=== PATIENT | female | born 1975 | race Caucasian/White ===

== ENCOUNTER 2019-11-17 21:46 | Emergency (ER) | payer OTHER ==
[~2019-11-17] VITALS: Ht 167.6 cm; Wt 75.3 kg
[2019-11-17 21:49] VITALS: Ht 167.6 cm; Wt 75.3 kg
[2019-11-17 23:52] VITALS: BP 115/61
== END 2019-11-17 23:45 | disposition home or self-care (01) ==
LOC: ED 21:46
DX: T78.1XXA Other adverse food reactions, not elsewhere classified, initial encounter (principal); X58.XXXA Exposure to other specified factors, initial encounter
CPT/HCPCS: J0171; J1100; J1200; J7030; J7613

== ENCOUNTER 2019-11-19 07:06 | Emergency (ER) | payer OTHER ==
[~2019-11-19] VITALS: Ht 167.6 cm; Wt 73.5 kg
[2019-11-19 07:10] VITALS: Ht 167.6 cm; Wt 73.5 kg
[2019-11-19 07:46] LABS: BASOPHIL % 0.2 % (0-2); PLATELET COUNT 400 x10^3mcL (130-400); RED CELL DISTRIBUTION WIDTH 17.6 % (11.5-14.5)
[2019-11-19 08:49] LABS: ALKALINE PHOSPHATASE 64 U/L (46-116); ALT/SGPT 22 U/L (14-59); AST/SGOT 12 U/L (15-37); BILIRUBIN TOTAL 0.5 mg/dL (0.20-1.00); CALCIUM 8.2 mg/dL (8.5-10.1); CARBON DIOXIDE 23.2 mmol/L (21-32); CHLORIDE SERUM 108 mmol/L (98-107); CREATININE SERUM 0.7 mg/dL (0.6-1.0); GFR1 > 60 mL/min; GLUCOSE SERUM 86 mg/dL (74-106); LIPASE 122 IU/L (73-393); SODIUM SERUM 142 mmol/L (136-145); TOTAL PROTEIN, SERUM 6.8 g/dL (6.4-8.2)
[2019-11-19 09:12] LABS: ALBUMIN 3.1 g/dL (3.4-5.0)
[2019-11-19 09:13] LABS: POTASSIUM SERUM 2.9 mmol/L (3.5-5.1)
[2019-11-19 13:42] LABS: CHLORIDE SERUM 112 mmol/L (98-107); CREATININE SERUM 0.5 mg/dL (0.6-1.0); GFR1 > 60 mL/min; GLUCOSE SERUM 77 mg/dL (74-106); POTASSIUM SERUM 3.9 mmol/L (3.5-5.1); SODIUM SERUM 143 mmol/L (136-145)
[2019-11-19 14:33] VITALS: BP 110/65
== END 2019-11-19 14:33 | disposition home or self-care (01) ==
LOC: ED 07:06
PROVIDERS: Emergency Medicine
DX: R19.7 Diarrhea, unspecified (principal); E87.6 Hypokalemia; Z86.2 Personal history of diseases of the blood and blood-forming organs and certain disorders involving the immune mechanism
CPT/HCPCS: 82962; J2405; J3475; J3480; J7030